=== PATIENT | female | born 1975 | race Caucasian/White ===

== ENCOUNTER → 2022-03-18 | Outpatient (CLI) | payer OTHER | LOC: MC.RAD 07:52 | DX: Z12.31 Encounter for screening mammogram for malignant neoplasm of breast (principal) ==

== ENCOUNTER 2022-05-20 07:51 | Observation (INO) | payer OTHER ==
[~2022-05-20] VITALS: Ht 154.9 cm; Wt 61.4 kg
[2022-05-20 08:26] LABS: COLLECTION METHOD CLEAN CATCH
[2022-05-20 08:29] LABS: HEMATOCRIT 39.9 % (37.0-47.0); HEMOGLOBIN 13.1 g/dl (12.5-16.0); MEAN CELL VOLUME 96 fl (80.0-100.0); MEAN CORPUSCULAR HEMOGLOBIN 32 pg (27-31); MEAN CORPUSCULAR HGB CONC 33 g/dl (33.0-37.0); MEAN PLATELET VOLUME 10.1 fl (7.4-10.4); PLATELET COUNT 405 K/mm3 (130-400); RED BLOOD COUNT 4.15 M/mm3 (4.10-5.30); REDCELL DISTRIBUTION WIDTH-CV 12.5 % (11.5-14.5)
[2022-05-20 08:34] LABS: URINE APPEARANCE Clear (CLEAR/HAZY); URINE COLOR Yellow (YELLOW)
[2022-05-20 08:35] LABS: URINE BLOOD 2+ (NEGATIVE); URINE GLUCOSE Negative (NEGATIVE); URINE KETONE Negative (NEGATIVE); URINE NITRATE Negative (NEGATIVE); URINE PROTEIN(semi-quant) 1+ (NEGATIVE); URINE UROBILINOGEN 0.2 E.U/dL (0.2-1.0)
[2022-05-20 08:38] LABS: MUCOUS Present (NOT PRESENT); URINE BACTERIA None Seen /hpf (NONE SEEN); URINE RBC >50 /hpf (0-2)
[2022-05-20 08:55] LABS: BAND 4 % (0-10); EOSINOPHIL 1 % (0-4); LYMPHOCYTE 48 % (20.0-51.0); NEUTROPHILS 41 % (42.0-75.2); PLATELET ESTIMATE NORMAL (NORMAL)
[2022-05-20 08:56] LABS: OVALOCYTES 1+
[2022-05-20 09:05] LABS: BILIRUBIN,TOTAL 0.7 mg/dL (0.2-1.2); CALCIUM 9.3 mg/dL (8.4-10.2); CREATININE, serum 0.99 mg/dL (0.57-1.11); POTASSIUM 3.8 mmol/L (3.5-4.5); TOTAL PROTEIN 6.6 gm/dL (6.2-8.1)
[2022-05-20 12:49] VITALS: BP 107/66; PULSE 90; TEMP 97.9
[2022-05-20] MEDS ORDERED: PREDNISONE 5MG5 MG PO (12:59)
[2022-05-20] MEDS ORDERED: PREDNISONE1 MG PO (12:59)
[2022-05-20] MEDS ORDERED: MYFORTIC180 MG PO (13:01)
[2022-05-20] MEDS ORDERED: BENLYSTA200 MG/1 M IJ (13:03)
[2022-05-20] MEDS ORDERED: PROTONIX20 MG PO (13:04)
[2022-05-20] MEDS ORDERED: PREMARIN VAG42.5 GM VG (13:07)
[2022-05-20] MEDS ORDERED: SINGULAIR 110 MG/TAB (13:07)
[2022-05-20] MEDS ORDERED: FLEXERIL5 MG (13:08)
[2022-05-20] MEDS ORDERED: FLEXERIL5 MG PO (13:09)
--- NOTE | 2022-05-20 16:27 | NUR ---
PATIENT OFF OF FLOOR FOR SURGERY
[2022-05-20] MEDS ORDERED: FLOMAX 0.40.4 MG/CAP PO (17:20)
[2022-05-20] MEDS ORDERED: PERCOCET 325 MG1 TA2 PO (17:20)
[2022-05-20 18:07] VITALS: TEMP 97.7
--- NOTE | 2022-05-20 18:22 | NUR ---
PATIENT BACK TO FLOOR. PATIENT AMBULATED TO BATHROOM, ABLE TO URINATE. ORDERED PATIENT A DINNER. PATIENT IS TOLERATING FLUIDS. IV INT AND REPORTS MINIMAL PAIN.
[2022-05-20 19:10] VITALS: BP 108/71; PULSE 84
[2022-05-20 19:40] VITALS: BP 129/75; PULSE 92
--- NOTE | 2022-05-20 22:47 | NUR ---
PATIENT IN ROOM AT SHIFT CHANGE. ALERT AND ORIENTED. VOIDING WITHOUT ISSUE. URINE IS CLEAR YELLOW. PATIENT AMBULATING IN ROOM INDEPENDENTLY. POST OP VSS. PATIENT C/O MODERATE "CRAMPING" PAIN TO ABD AND PRN LEVSIN WAS GIVEN. ENCOURAGED TO GO [employer] SCRIPT BEFORE PHARMACY CLOSED. PATIENT TOLERATED PO FLUIDS AND FOOD WITHOUT ISSUE. IV TO L AC DISCONTINUED, BANDAID APPLIED. PATIENT DISCHARGED VIA WHEELCHAIR TO HOME WITH AT 2014. DISCHARGE CRITERIA MET.
== END 2022-05-20 20:15 | disposition home or self-care (01) ==
LOC: COL.ER 07:51 → SURG 11:07
PROVIDERS: Personal Emergency Response Attendant; ADMIT Urology
DX: N13.2 Hydronephrosis with renal and ureteral calculous obstruction (principal); Z85.820 Personal history of malignant melanoma of skin; Z28.310 Unvaccinated for COVID-19; Z28.9 Immunization not carried out for unspecified reason
CPT/HCPCS: C1769; C2617; G0378; J0690; J1100; J1790; J2060; J2175; J2270; J2405; J2704; J3010; J3480; J7030; Q9967

== ENCOUNTER 2024-04-20 09:02 | Day surgery (SDC) | payer OTHER ==
[~2024-04-20] VITALS: Ht 154.9 cm; Wt 59.0 kg
[~2024-04-20 09:02] MED LIST: BENLYSTA200 MG/1 M IJ; FLEXERIL5 MG; FLEXERIL5 MG PO; FLOMAX 0.40.4 MG/CAP PO; LR 1,000 ML IV SCH; MYFORTIC180 MG PO; PERCOCET 325 MG1 TA2 PO; PREDNISONE 5MG5 MG PO; PREDNISONE1 MG PO; PREMARIN VAG42.5 GM VG; PROTONIX20 MG PO; SINGULAIR 110 MG/TAB
[2024-04-20] MEDS ORDERED: Lidocaine PF 2% (20 MG/ML) 5 ML VIAL ONE (09:52)
[2024-04-20] MEDS ORDERED: Ondansetron 4 MG/2 ML VIAL ONE (09:52)
[2024-04-20] MEDS ORDERED: fentaNYL 50 MCG/ML 2 ML VIAL ONE (09:53)
[2024-04-20 09:59] VITALS: BP 108/75; PULSE 93; TEMP 97.7
[2024-04-20] MEDS ORDERED: PLAQUENIL 200M200 MG PO (10:10)
[2024-04-20] MEDS ORDERED: PREDNISONE1 MG PO (10:12)
[2024-04-20] MEDS ORDERED: SINGULAIR 110 MG/TAB PO (10:12)
[2024-04-20] MEDS ORDERED: PROTONIX 40MG T40 MG PO (10:13)
[2024-04-20] MEDS ORDERED: AMBIEN 10MG10 MG PO (10:13)
[2024-04-20] MEDS ORDERED: XANAX .25M0.25 MG/TA PO (10:14)
[2024-04-20] MEDS ORDERED: SAPHNELO IV (10:15)
[2024-04-20] MEDS ORDERED: Iohexol 350 - 100 ML VIAL URETER-R ONE (10:20)
[2024-04-20] MEDS ORDERED: Iohexol 300 - 10 ML VIAL URETER-R ONE (10:20)
[2024-04-20] MEDS ORDERED: Ondansetron 4 MG/2 ML VIAL IV PRN (10:30)
[2024-04-20] MEDS ORDERED: HYDROmorphone 1 MG/1 ML SYRINGE [PACU/SDC ONLY] IV PRN (10:30)
[2024-04-20] MEDS ORDERED: fentaNYL 50 MCG/ML 1 ML SYRINGE/VIAL [PACU/SDC ONLY] IV PRN (10:30)
[2024-04-20] MEDS ORDERED: Lidocaine 2% (20 MG/ML) 20 ML UROJET UR ONE (10:36)
[2024-04-20 11:15] VITALS: BP 111/82; PULSE 60; TEMP 97.1
[2024-04-20 11:30] VITALS: BP 115/75; PULSE 67
[2024-04-20] MEDS ORDERED: Hyoscyamine 0.125 MG Sublingual TAB SL PRN (11:30)
[2024-04-20] MEDS ORDERED: Ketorolac 15 MG/ML VIAL IV PRN (11:30)
[2024-04-20] MEDS ORDERED: oxyCODONE/Acetaminophen 5-325 MG TAB PO PRN (11:30)
[2024-04-20 11:40] VITALS: TEMP 98.4
[2024-04-20 11:45] VITALS: BP 111/70; PULSE 73
--- NOTE | 2024-04-20 12:15 | NUR ---
1115-PT TO BAY 2 PER CART FROM PACU. REPORT RECEIVED. VS OBTAINED. PT TOLERATING ICE CHIPS. PT DENIES ANY NEEDS AT THIS TIME. PT RESTING. 1130-PT TOLERATING WATER. DENIES ANY NEEDS. 1140-PT RESTING. NO CHANGES. 1150-IV DC'D AT THIS TIME. PT UP TO RESTROOM, AMBULATED INDEPENDENTLY. PT VOIDED WITHOUT DIFFICULTY. PT ABLE TO DRESS SELF WITHOUT ASSISTANCE. 1205-DISCHARGE EDUCATION COMPLETED WITH PT AND HER . VERBALIZED UNDERSTANDING OF HOME AND FOLLOW UP CARE. ALL QUESTIONS ANSWERED. DISCHARGE PAPERWORK GIVEN TO PT. 1215-PT OFF UNIT PER WHEELCHAIR. PT DISCHARGED TO HOME WITH HER PER PERSONAL VEHICLE.
== END 2024-04-20 12:15 | disposition home or self-care (01) ==
LOC: SDCO 09:02
DX: N13.1 Hydronephrosis with ureteral stricture, not elsewhere classified (principal); K21.9 Gastro-esophageal reflux disease without esophagitis; Z79.899 Other long term (current) drug therapy; Z85.820 Personal history of malignant melanoma of skin; Z87.891 Personal history of nicotine dependence
CPT/HCPCS: C1726; C1769; C2617; J0690; J1720; J2405; J2704; J3010; J7120; Q9967